=== PATIENT | female | born 1960 ===

== ENCOUNTER 2018-01-12 17:20 | Emergency (ER) | payer SELFPAY ==
[~2018-01-12] VITALS: Ht 165.1 cm; Wt 115.0 kg
[2018-01-12 17:27] VITALS: BP 210/95; PULSE 80; RESP 17; TEMP 98.8; O2SAT 100
== END 2018-01-12 20:40 | disposition left against medical advice (07) ==
LOC: NED 17:20
DX: Z53.21 Procedure and treatment not carried out due to patient leaving prior to being seen by health care provider (principal)
CPT/HCPCS: 99281